=== PATIENT | male | born 1975 | race Hispanic/Latino ===

== ENCOUNTER 2022-12-21 11:53 | Inpatient (IN) | payer SELFPAY ==
[~2022-12-21] VITALS: Ht 165.1 cm; Wt 70.5 kg
[2022-12-21] MEDS ORDERED: ONDANSETRON HCL INJ 2MG/ML 2ML 2 MG/ML VIAL ONE (11:58)
[2022-12-21] MEDS ORDERED: SODIUM CHLORIDE 0.9% 1000ML 1,000 ML ONE (11:58)
[2022-12-21] MEDS ORDERED: SODIUM CHLORIDE 0.9% 1000ML 1,000 ML IV STA (11:58)
[2022-12-21] MEDS ORDERED: ONDANSETRON HCL INJ 2MG/ML 2ML 2 MG/ML VIAL IV STA ×2 (12:00→15:07)
[2022-12-21] MEDS ORDERED: PROMETHAZINE 25MG/SOD CHL 0.9% 50 ML IV ONE (12:01)
[2022-12-21 12:12] LABS: BASOPHILS % 0.3 % (0.0-1.0); EOSINOPHILS % 0.3 % (0.0-6.0); HEMATOCRIT 48.1 % (38.2-49.6); HEMOGLOBIN 17.3 g/dL (14.0-18.0); LYMPHOCYTES # (AUTO) 1.4 (1.0-3.2); LYMPHOCYTES % 11.1 % (18.0-39.1); MEAN CORPUSCULAR HEMOGLOBIN 32.2 pg (28-32); MEAN CORPUSCULAR VOLUME 89.6 fL (81-99); MONOCYTES # (AUTO) 0.8 (0.2-0.8); MONOCYTES % 6.1 % (4.4-11.3); NEUTROPHILS # (AUTO) 10.2 (2.1-6.9); NEUTROPHILS % 81.6 % (38.7-80.0); PLATELET COUNT 196 x10e3/uL (140-360); RED BLOOD COUNT 5.37 x10e6/uL (4.3-5.7); RED CELL DISTRIBUTION WIDTH 11.9 % (11.7-14.4)
[2022-12-21] MEDS ORDERED: PROMETHAZINE 12.5MG/ NACL 0.9% 12.5 MG/50 ML BAG IV ONE (12:15)
[2022-12-21 12:53] LABS: ALANINE AMINOTRANSFERASE 32 IU/L (0-55); ALBUMIN 3.8 g/dL (3.5-5.0); ALBUMIN/GLOBULIN RATIO 0.9 (0.8-2.0); ALKALINE PHOSPHATASE 107 IU/L (40-150); ANION GAP 20.9 mmol/L (8-16); BLOOD UREA NITROGEN 9 mg/dL (7-26); BUN/CREATININE RATIO 10 (6-25); CARBON DIOXIDE 16 mmol/L (22-29); CHLORIDE 101 mmol/L (98-107); GLUCOSE 157 mg/dL (74-118); LIPASE 673 U/L (8-78); MAGNESIUM 1.8 MG/DL (1.3-2.1); POTASSIUM 3.9 mmol/L (3.5-5.1); SODIUM 134 mmol/L (136-145)
[2022-12-21] MEDS ORDERED: IOPAMIDOL 370 MG/ML 100 ML INFUS..BTL INJ ONE (13:20)
[2022-12-21] MEDS ORDERED: HYDROMORPHONE 1MG/1ML INJ IV STA (15:07)
[2022-12-21] MEDS ORDERED: PROMETHAZINE HCL (IM) 25 MG/ML VIAL IM PRN (15:15)
[2022-12-21] MEDS ORDERED: HYDROMORPHONE 1MG/1ML INJ ONE (15:22)
[2022-12-21 15:27] LABS: CHOL/HDL RATIO 9.3 (3.9-4.7); CHOLESTEROL 336 MD/DL (0-199); HDL CHOLESTEROL 36 MG/DL (40-60)
[2022-12-21 15:33] LABS: TRIGLYCERIDES 1185 MG/DL (0-149)
[2022-12-21] MEDS: SODIUM CHLORIDE 0.9% 1000ML 1,000 ML IV SCH ×2 (15:35→22:17)
[2022-12-21 16:16] VITALS: BP 101/66
[2022-12-21 16:22] VITALS: BP 101/66
[2022-12-21] MEDS: FENOFIBRATE 145 MG TAB PO SCH (17:52)
[2022-12-21 20:00] VITALS: BP 99/60
[2022-12-22] VITALS (7 sets, daily range): BP systolic 110–135; BP diastolic 74–85
[2022-12-22 06:07] LABS: BASOPHILS % 0.2 % (0.0-1.0); EOSINOPHILS % 0.1 % (0.0-6.0); HEMATOCRIT 44.1 % (38.2-49.6); HEMOGLOBIN 15.5 g/dL (14.0-18.0); LYMPHOCYTES # (AUTO) 1.6 (1.0-3.2); LYMPHOCYTES % 16.1 % (18.0-39.1); MEAN CORPUSCULAR HEMOGLOBIN 31.6 pg (28-32); MEAN CORPUSCULAR HGB CONC 35.1 g/dL (31-35); MONOCYTES # (AUTO) 0.7 (0.2-0.8); MONOCYTES % 7.2 % (4.4-11.3); NEUTROPHILS # (AUTO) 7.7 (2.1-6.9); NEUTROPHILS % 76.1 % (38.7-80.0); PLATELET COUNT 183 x10e3/uL (140-360); RED CELL DISTRIBUTION WIDTH 12.1 % (11.7-14.4)
[2022-12-22 06:32] LABS: ALBUMIN 3.2 g/dL (3.5-5.0); ALBUMIN/GLOBULIN RATIO 1.1 (0.8-2.0); ANION GAP 11.6 mmol/L (8-16); CALCIUM 7.9 mg/dL (8.4-10.2); CREATININE, SERUM 0.81 mg/dL (0.72-1.25); POTASSIUM 3.6 mmol/L (3.5-5.1)
[2022-12-22] MEDS: FENOFIBRATE 145 MG TAB PO SCH (09:30)
[2022-12-22] MEDS: FAMOTIDINE 20 MG/2 ML VIAL IV SCH ×2 (09:30→18:19)
[2022-12-22] MEDS: SODIUM CHLORIDE 0.9% 1000ML 1,000 ML IV SCH ×3 (09:31→23:24)
[2022-12-22] MEDS: HYDROMORPHONE 1MG/1ML INJ IV PRN ×2 (18:29→23:19)
[2022-12-22] MEDS: ONDANSETRON HCL INJ 2MG/ML 2ML 2 MG/ML VIAL IV PRN ×2 (18:29→23:19)
[2022-12-23] VITALS (7 sets, daily range): BP systolic 115–122; BP diastolic 68–78
[2022-12-23 06:21] LABS: BASOPHILS % 0.1 % (0.0-1.0); EOSINOPHILS % 0.3 % (0.0-6.0); HEMATOCRIT 47.1 % (38.2-49.6); HEMOGLOBIN 15.9 g/dL (14.0-18.0); LYMPHOCYTES # (AUTO) 1.1 (1.0-3.2); LYMPHOCYTES % 8.8 % (18.0-39.1); MEAN CORPUSCULAR HEMOGLOBIN 31.6 pg (28-32); MEAN CORPUSCULAR HGB CONC 33.8 g/dL (31-35); MEAN CORPUSCULAR VOLUME 93.6 fL (81-99); MONOCYTES # (AUTO) 0.9 (0.2-0.8); MONOCYTES % 7.5 % (4.4-11.3); NEUTROPHILS % 82.9 % (38.7-80.0); PLATELET COUNT 168 x10e3/uL (140-360); RED BLOOD COUNT 5.03 x10e6/uL (4.3-5.7)
[2022-12-23] MEDS: ONDANSETRON HCL INJ 2MG/ML 2ML 2 MG/ML VIAL IV PRN ×3 (07:15→23:33)
[2022-12-23] MEDS: HYDROMORPHONE 1MG/1ML INJ IV PRN ×4 (07:15→23:34)
[2022-12-23] MEDS: FAMOTIDINE 20 MG/2 ML VIAL IV SCH ×2 (10:10→16:13)
[2022-12-23] MEDS: FENOFIBRATE 145 MG TAB PO SCH (10:10)
[2022-12-23] MEDS: SODIUM CHLORIDE 0.9% 1000ML 1,000 ML IV SCH ×3 (10:18→23:33)
[2022-12-23 10:19] LABS: ANION GAP 14.6 mmol/L (8-16); CALCIUM 8.2 mg/dL (8.4-10.2); CREATININE, SERUM 0.73 mg/dL (0.72-1.25); POTASSIUM 3.6 mmol/L (3.5-5.1)
[2022-12-24] VITALS (8 sets, daily range): BP systolic 115–133; BP diastolic 76–89
[2022-12-24] MEDS: ONDANSETRON HCL INJ 2MG/ML 2ML 2 MG/ML VIAL IV PRN ×4 (05:17→21:29)
[2022-12-24] MEDS: HYDROMORPHONE 1MG/1ML INJ IV PRN ×4 (05:18→21:29)
[2022-12-24 06:06] LABS: BASOPHILS % 0.2 % (0.0-1.0); EOSINOPHILS # (AUTO) 0.1 (0.0-0.4); EOSINOPHILS % 0.6 % (0.0-6.0); HEMATOCRIT 44.8 % (38.2-49.6); HEMOGLOBIN 14.8 g/dL (14.0-18.0); LYMPHOCYTES % 8.6 % (18.0-39.1); MEAN CORPUSCULAR HEMOGLOBIN 31.4 pg (28-32); MEAN CORPUSCULAR VOLUME 94.9 fL (81-99); MONOCYTES % 8.7 % (4.4-11.3); NEUTROPHILS # (AUTO) 9.4 (2.1-6.9); NEUTROPHILS % 81.5 % (38.7-80.0); PLATELET COUNT 161 x10e3/uL (140-360); RED BLOOD COUNT 4.72 x10e6/uL (4.3-5.7); RED CELL DISTRIBUTION WIDTH 12.5 % (11.7-14.4)
[2022-12-24] MEDS: SODIUM CHLORIDE 0.9% 1000ML 1,000 ML IV SCH ×2 (08:45→16:02)
[2022-12-24] MEDS: FAMOTIDINE 20 MG/2 ML VIAL IV SCH ×2 (08:45→16:01)
[2022-12-24] MEDS: FENOFIBRATE 145 MG TAB PO SCH (08:46)
[2022-12-25 01:45] VITALS: BP 121/77
[2022-12-25] MEDS: ONDANSETRON HCL INJ 2MG/ML 2ML 2 MG/ML VIAL IV PRN ×2 (02:00→06:38)
[2022-12-25] MEDS: HYDROMORPHONE 1MG/1ML INJ IV PRN ×2 (02:00→06:39)
[2022-12-25] MEDS: SODIUM CHLORIDE 0.9% 1000ML 1,000 ML IV SCH ×2 (02:00→07:12)
[2022-12-25 06:21] VITALS: BP 128/86
[2022-12-25 08:00] VITALS: BP 117/80
[2022-12-25] MEDS ORDERED: TYLENOL325 MG PO (08:32)
[2022-12-25] MEDS ORDERED: FENOFIBRATE145 MG PO (08:32)
[2022-12-25] MEDS: FENOFIBRATE 145 MG TAB PO SCH (08:49)
[2022-12-25] MEDS: FAMOTIDINE 20 MG/2 ML VIAL IV SCH (08:49)
[2022-12-25 09:01] VITALS: BP 128/86
== END 2022-12-25 10:13 | disposition home or self-care (01) | DRG 439 ==
LOC: ER 11:56 → ERHOLD 15:16 → MED/SURG2 16:02
PROVIDERS: ADMIT Internal Medicine; ATTEND Internal Medicine
DX: K85.90 Acute pancreatitis without necrosis or infection, unspecified (principal); E87.1 Hypo-osmolality and hyponatremia; E87.20 Acidosis, unspecified; R73.9 Hyperglycemia, unspecified; K76.0 Fatty (change of) liver, not elsewhere classified; Z20.822 Contact with and (suspected) exposure to COVID-19
CPT/HCPCS: 36415; 71045; 74177; 80048; 80053; 80061; 82948; 83036; 83690; 83735; 84484; 85025; 93005; 96361; 99284; J1170; J2405; J2550; J7030; Q9967